=== PATIENT | male | born 1960 | race Caucasian/White ===

== ENCOUNTER 2024-08-17 22:13 | Emergency (ER) | payer BC, SELFPAY ==
--- NOTE | 2024-08-17 22:15 | ECG_ITS ---
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
[2024-08-17 22:29] VITALS: BP 177/105; PULSE 93; RESP 18; TEMP 36.7; O2SAT 96; BMI 24.3
[2024-08-17 23:45] VITALS: BP 169/114
--- NOTE | 2024-08-17 23:51 | W.ED.GENADLT ---
HPI - General Adult General: Chief complaint: General Medical Stated complaint: High BP Time Seen by Provider: 08/17/24 23:43 Source: patient Mode of arrival: ambulatory Limitations: no limitations History of Present Illness: Patient is a 64-year-old male who presents to ED today for evaluation of an elevated blood pressure reading. Patient states he is asymptomatic apart from chronic lower back pain. He states he had a friend take his blood pressure just for fun and stated it was significantly elevated so convinced him to come to the emergency department. Patient states he is homeless. 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 He states he he stopped taking all of these medications when he got released a few years ago. Patient states his lower back pain has been present for years. States he used to take gabapentin for this. Has been walking long distances due to his homelessness. Patient denies headache, visual changes, chest pain, abdominal pain. Relieving factors: none Exacerbating factors: none Associated symptoms: Reports no associated symptoms; Deny chest pain, dyspnea, headache(s), nausea, rash, palpitations, syncope or vomiting Treatments prior to arrival: none Related Data Previous Rx's Medication Instructions Recorded lisinopril 20 mg tablet 20 mg PO DAILY #30 tabs 08/18/24 Allergies Allergy/AdvReac Type Severity Reaction Status Date / Time No Known Allergies Allergy Verified 08/17/24 22:33 Review of Systems Const: Denies: fever(s) or chills Eyes: Denies: change in vision or blurry vision Card: Denies: chest pain, palpitations, irregular heart rhythm, lightheadedness, syncope or dyspnea on exertion Resp: Denies: dyspnea, productive cough or pain on inspiration GI: Denies: abdominal pain, nausea, vomiting, heartburn or diarrhea : Denies: difficulty urinating or dysuria Musc: Reports: back pain (chronic low back pain-at baseline); Denies: neck pain, extremity pain, extremity swelling or joint pain Skin/Breast: Denies: rash Neuro: Denies: headache(s), numbness in extremities, weakness in extremities, sensory changes or dizziness Physical Exam Const: COMMON NORMALS: no acute distress, average body habitus, patient oriented x3, no limitations, healthy appearing, alert and well nourished HENMT: COMMON NORMALS: normocephalic and atraumatic HEAD & SCALP: normocephalic and atraumatic Neck/C-Spine: COMMON NORMALS: full ROM, no lymphadenopathy, supple and no meningeal signs Chest: COMMONS NORMALS: normal inspection of the chest Resp: COMMON NORMALS: normal respiratory effort and clear to auscultation bilaterally AUSCULTATION: clear to auscultation bilaterally Cardio: COMMON NORMALS: regular rate and regular rhythm RATE: regular rate RHYTHM: regular rhythm GI: COMMON NORMALS: Normal to inspection, nondistended, normoactive bowel sounds present, Soft to palpation, non-tender, No hepatosplenomegaly present and no masses PALPATION: Yes Soft to palpation and Yes No hepatosplenomegaly present Back/Pelvis: COMMON NORMALS: thoracic and lumbar spine normal to inspection and straight leg raise negative bilaterally LUMBAR SPINE/LOWER BACK: Yes paraspinal muscle tenderness PELVIS: Yes buttocks normal and No sciatic notch tenderness SACRUM: no tenderness COCCYX: no tenderness Extremity: COMMON NORMALS: normal to inspection GENERAL: Yes normal exam except as noted Neuro: COMMON NORMALS: patient oriented x3, moves all extremities, no focal motor deficits, no sensory deficits noted and gait normal SENSORIUM/ORIENTATION: Yes alert MENINGEAL SIGNS: Yes no meningeal signs Skin: COMMON NORMALS: no rashes or lesions noted GENERAL SKIN EXAM: no rashes or lesions noted Course Vital Signs: Vital signs: Vital Signs Temperature 98.0 F 08/17/24 22:29 Pulse Rate 58 L 08/18/24 00:45 Respiratory Rate 13 08/18/24 00:45 Blood Pressure 180/96 08/18/24 00:45 Pulse Oximetry 99 08/18/24 00:45 Oxygen Delivery Me thod Room Air 08/17/24 22:29 [facility] - General Adult Medical Decision Making Patient here for chronic untreated hypertension. He is asymptomatic. There is no indication for emergent lowering at this time. He will be placed on lisinopril and encouraged to keep a blood pressure log. Will have case management set him up with a primary care provider and they can titrate based on log. Return to ED precautions given. He was requesting something for his chronic back pain so he was given IM Toradol/Norflex. Primary care can restart him on his gabapentin if indicated. Medical Records I reviewed the patient's medical records. Lab Data I reviewed the patient's lab results. 08/18/24 00:33 08/18/24 00:33 Laboratory Results WBC 7.51 10^3/uL (3.29-11.43) 08/18/24 00:33 RBC 4.39 10^6/uL (3.85-5.65) 08/18/24 00:33 Hgb 14.00 g/dL (11.27-16.99) 08/18/24 00:33 Hct 41.9 % (37-53) 08/18/24 00:33 MCV 95.4 fl (82-101) 08/18/24 00:33 MCH 31.9 pg (27-33) 08/18/24 00: MCHC 33.4 g/dL (30-55) 08/18/24 00:33 RDW 13.5 % (12.1-15.1) 08/18/24 00:33 Plt Count 165 10^3/cmm (157-399) 08/18/24 00:33 MPV 10.7 fL (7.4-10.4) H 08/18/24 00:33 Neut % (Auto) 38.9 % 08/18/24 00:33 Lymph % (Auto) 45.8 % 08/18/24 00:33 [place] % (Auto) 13.8 % 08/18/24 00:33 Eos % (Auto) 0.9 % 08/18/24 00:33 Baso % (Auto) 0.5 % 08/18/24 00:33 Neut # (Auto) 2.91 10^3/uL (1.8-7.7) 08/18/24 00:33 Lymph # (Auto) 3.4 10^3/uL (0.8-4.8) 08/18/24 00:33 [place] # (Auto) 1.0 10^3/uL (0.2-0.9) H 08/18/24 00:33 Eos # (Auto) 0.1 10^3/uL (0.0-0.8) 08/18/24 00:33 Baso # (Auto) 0.0 10^3/uL (0.0-0.1) 08/18/24 00:33 Nucleated RBC % (auto) 0 % 08/18/24 00: Nucleated RBCs # 0.0 /100WBC 08/18/24 00:33 No radiology studies performed this visit Discharge Plan Discharge Patient Disposition: Home Clinical Impression: Hypertension Qualifiers: Hypertension type: unspecified Qualified Code(s): I10 - Essential (primary) hypertension Chronic low back pain Qualifiers: Back pain laterality: unspecified Sciatica presence: without sciatica Qualified Code(s): M54.50 - Low back pain, unspecified Condition: Stable Prescriptions: New lisinopril 20 mg tablet 20 mg PO DAILY Qty: 30 0RF Discharge Orders: Discharge ED (Routine); Ordered 08/18/24 Ordered By: Elmira Samayoa Patient Instructions: Hypertension (ED) Activity Restrictions/Additional Instructions: As we discussed, case management should reach out to you to help set you up with your follow-up primary care appointment. I would like you to start keeping a blood pressure log and check daily. Primary care will need to adjust your blood pressure medications based on this log. Coding Level of Care Code ED Clinical Trial Leader for Maria Eugenia Aguiar
[2024-08-18] MEDS: orphenadrine 30 mg/mL Inj 2 mL 60 MG IM (00:22)
[2024-08-18] MEDS: ketorolac 30 mg/mL INJ IM (00:22)
[2024-08-18 00:28] VITALS: BP 182/105; PULSE 65; RESP 16; O2SAT 98
[2024-08-18 00:45] VITALS: BP 180/96; PULSE 58; RESP 13; O2SAT 99
[2024-08-18 00:49] LABS: Basophils % 0.5 %; Eosinophils # 0.1 10^3/uL (0.0-0.8); Eosinophils % 0.9 %; Hematocrit 41.9 % (37-53); Lymphocytes # 3.4 10^3/uL (0.8-4.8); Lymphocytes % 45.8 %; Mean Corpuscular HGB Conc 33.4 g/dL (30-55); Mean Corpuscular Hemoglobin 31.9 pg (27-33); Mean Corpuscular Volume 95.4 fl (82-101); Mean Platelet Volume 10.7 fL (7.4-10.4); Monocytes % 13.8 %; Neutrophils # 2.91 10^3/uL (1.8-7.7); Neutrophils % 38.9 %; Nucleated Red Blood Cells % 0 %; Platelet Count 165 10^3/cmm (157-399); Red Blood Count 4.39 10^6/uL (3.85-5.65); Red Cell Distribution Width 13.5 % (12.1-15.1); White Blood Count 7.51 10^3/uL (3.29-11.43)
[2024-08-18 01:08] LABS: Alanine Aminotransferase 18 U/L (0-41); Albumin Level 4.1 g/dL (3.5-5.2); Alkaline Phosphatase 107 U/L (40-130); Anion Gap 12.7 (5-19); Aspartate Amino Transferase 29 U/L (0-40); Blood Urea Nitrogen 18 mg/dL (8-23); Calcium 9.6 mg/dL (8.5-10.5); Carbon Dioxide 28 mmol/L (22-29); Chloride 102 mmol/L (98-107); Creatinine Clr Calc Pharmacy 67.2389; Glomerular Filtration Rate 67.4 mL/min (90-130); Glucose 96 mg/dL (65-115); Osmolality Calculated 290 mOsm/kg (285-295); Potassium 3.7 mmol/L (3.5-5.1); Sodium 139 mmol/L (136-145); Total Bilirubin 0.4 mg/dL (0.15-1.2); Total Protein 7.1 g/dL (6.6-8.7)
[2024-08-18 01:43] VITALS: BP 135/84; PULSE 55; O2SAT 93
--- NOTE | 2024-08-20 08:40 | DCPLANNER ---
messaged wp fam med for er f/u
== END 2024-08-18 01:35 | disposition home or self-care (01) ==
PROVIDERS: Emergency Provider Physician Assistant
DX: I10 Essential (primary) hypertension (principal); G89.29 Other chronic pain; M54.50 Low back pain, unspecified
CPT/HCPCS: 80053; 85025; 93005; 96372; 99284; J1885; J2360

== ENCOUNTER 2024-08-18 21:10 | Emergency (ER) | payer BC, SELFPAY ==
[2024-08-18 21:12] VITALS: BP 143/90; PULSE 77; RESP 16; TEMP 36.3; O2SAT 98
--- NOTE | 2024-08-18 21:44 | ED_ITS ---
HPI - Back Pain/Injury 2 General: Chief Complaint: Back Pain/Injury Stated Complaint: Lower Back pain Time Seen by Provider: 08/18/24 21:40 Source: patient Mode of arrival: ambulatory Limitations: no limitations History of Present Illness: Patient is a 64-year-old male who presents to ED today with a complaint of acute on chronic low back pain. I just saw this patient yesterday here in the emergency department due to high blood pressure. 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 Blood pressure at triage today was 143/90. At his visit yesterday he told me about his chronic lower back pain. He states he is currently homeless and has been walking long distances and feels like maybe he has exacerbated this. He was given IM Toradol/Norflex yesterday that completely alleviated his pain until today when he walked several miles to [facility] and [facility] and now feels like he is having pain again. He states pain is to the right side of his back with no radicular symptoms into his buttock or legs. He is not having any saddle anesthesia or bowel or bladder incontinence/retention. MD elicited complaint: back pain Pertinent past history: prior back pain Onset (ago): year(s) Timing: constant Severity: moderate Similar Symptoms Previously: Yes Quality: burning Location: right lower back Radiation: none Exacerbating factors: movement and walking Relieving factors: none Associated symptoms: Reports no associated symptoms; Deny abdominal pain, difficulty walking, dysuria, fever(s) or hematuria Work related injury: No Related Data Previous Rx's Medication Instructions Recorded diclofenac sodium 50 mg 50 mg PO Q12H PRN pain #20 tabs 08/18/24 tablet,delayed release lisinopril 20 mg tablet 20 mg PO DAILY #30 tabs 08/18/24 methylprednisolone 4 mg tablets in See Rx Instructions PO .COMPLEX 08/18/24 a dose pack (Medrol (Rinku)) #21 ea Allergies Allergy/AdvReac Type Severity Reaction Status Date / Time No Known Allergies Allergy Verified 08/18/24 21:18 Review of Systems 2 Const: Denies: fever(s) Card: Denies: chest pain Resp: Denies: dyspnea GI: Denies: abdominal pain : Denies: flank pain, dysuria or hematuria Musc: Reports: back pain; Denies: neck pain, extremity pain, extremity swelling, joint pain or joint swelling Skin/Breast: Denies: rash Neuro: Denies: numbness in extremities, weakness in extremities, sensory changes or difficulty walking Physical Exam 2 Const: COMMON NORMALS: no acute distress, average body habitus, patient oriented x3, no limitations, alert and well nourished GENERAL APPEARANCE: c ooperative ORIENTATION/CONSCIOUSNESS: Yes awake, Yes oriented to person, Yes oriented to place and Yes oriented to time OTHER: Patient is ambulatory here without difficulty or assistance Neck/C-Spine: COMMON NORMALS: full ROM and no meningeal signs Resp: COMMON NORMALS: normal respiratory effort and clear to auscultation bilaterally AUSCULTATION: clear to auscultation bilaterally Cardio: COMMON NORMALS: regular rate and regular rhythm RATE: regular rate RHYTHM: regular rhythm GI: COMMON NORMALS: Normal to inspection, nondistended, normoactive bowel sounds present, Soft to palpation and no masses PALPATION: Yes Soft to palpation : COMMON NORMALS: Yes no CVA tenderness BLADDER/KIDNEY EXAM: Yes no CVA tenderness Back/Pelvis: COMMON NORMALS: no CVA tenderness, thoracic and lumbar spine normal to inspection, no thoracic nor lumbar tenderness, thoraco-lumbar ROM normal and straight leg raise negative bilaterally PELVIS: Yes buttocks normal and No sciatic notch tenderness SACRUM: no tenderness COCCYX: no tenderness BACK IMAGE (MALE): 1. TTP Extremity: COMMON NORMALS: full ROM, capillary refill normal, no clubbing, cyanosis or edema, no calf tenderness and no pedal edema GENERAL: Yes normal exam except as noted Neuro: COMMON NORMALS: patient oriented x3, moves all extremities, no focal motor deficits, no sensory deficits noted and gait normal S ENSORIUM/ORIENTATION: Yes alert, Yes oriented to person, Yes oriented to place and Yes oriented to time MENINGEAL SIGNS: Yes no meningeal signs Skin: COMMON NORMALS: no rashes or lesions noted GENERAL SKIN EXAM: no rashes or lesions noted Course 2 Vital Signs: Vital signs: Vital Signs Temperature 97.3 F L 08/18/24 21:12 Pulse Rate 77 08/18/24 21:12 Respiratory Rate 16 08/18/24 21:12 Blood Pressure 143/90 08/18/24 21:12 Pulse Oximetry 98 08/18/24 21:12 Oxygen Delivery Me thod Room Air 08/18/24 21:12 MDM - Back Pain/Injury Medical Decision Making Will place patient on anti-inflammatories and steroids. Case management referral placed to get him set up with a primary care provider for further evaluation of his chronic back pain. Return to ED precautions given. Medical Records I reviewed the patient's medical records. No radiology studies performed this visit Discharge Plan Discharge Patient Disposition: Home Clinical Impression: Chronic low back pain Qualifiers: Back pain laterality: unspecified Sciatica presence: without sciatica Qualified Code(s): M54.50 - Low back pain, unspecified Condition: Stable Prescriptions: New diclofenac sodium 50 mg tablet,delayed release (DR/EC) 50 mg PO Q12H PRN (Reason: pain) Qty: 20 0RF Medrol (Rinku) 4 mg tablets,dose pack See Rx Instructions .ROUTE .COMPLEX Qty: 21 0RF Rx Instructions: orally per package directions No Action lisinopril 20 mg tablet 20 mg PO DAILY Qty: 30 0RF Discharge Orders: Discharge ED (Routine); Ordered 08/18/24 Ordered By: Elmira Samayoa Coding Level of Care Code ED Framing Specialist for Maria Eugenia Aguiar
[2024-08-18] MEDS: dexamethasone 10 mg/mL INJ 8 MG IM (22:22)
[2024-08-18] MEDS: ketorolac 30 mg/mL INJ IM (22:23)
[2024-08-18 22:55] VITALS: BP 148/90; PULSE 64; RESP 16; O2SAT 96
== END 2024-08-18 22:55 | disposition home or self-care (01) ==
PROVIDERS: Emergency Provider Physician Assistant
DX: G89.29 Other chronic pain (principal); M54.50 Low back pain, unspecified
CPT/HCPCS: 96372; 99284; J1100; J1885